=== PATIENT | male | born 2000 | race Caucasian/White ===

== ENCOUNTER 2019-10-20 10:10 | Emergency (ER) | payer OTHER, SELFPAY ==
--- NOTE | 2019-10-20 10:24 | ED.GENADULT ---
HPI - General Adult General Chief complaint: Arrhythmia/Palpitations Stated complaint: difficulty breathing Time Seen by Provider: 10/20/19 10:22 Source: patient Mode of arrival: Ambulatory Limitations: no limitations History of Present Illness HPI narrative: 19-year-old male here for evaluation of palpitations and shortness of breath. Patient states that yesterday afternoon he started feeling like his heart was beating very hard and somewhat fast and also skipping beats. He states that during that time he was having some problems taking a deep breath. Unsure exactly how long the symptoms lasted but it did seem to resolve on its own however he still has a small amount of some shortness of breath currently. No lower extremity swelling. No chest pain. Has had the palpitations in the past but has never been evaluated for them. Last night did not get lightheaded. He was sitting on the couch that time. Related Data Home Medications Medication Instructions Recorded Confirmed [[facility] ] PRN #0 12/01/10 Allergies Allergy/AdvReac Type Severity Reaction Status Date / Time No Known Drug Allergies Allergy Verified 10/20/19 10:54 Review of Systems Constitutional Constitutional: Denies frequent falls and Denies headache(s) ENT Ears, Nose, Mouth, and Throat: Denies headache(s) Cardiovascular Cardiovascular: Denies chest pain, Denies chest pain with activity, Reports rapid heart rate, Reports irregular heart rhythm, Denies lightheadedness and Reports dyspnea Respiratory Respiratory: Denies cough and Reports dyspnea Gastrointestinal Gastrointestinal: Denies abdominal pain, Denies nausea and Denies vomiting Musculoskeletal Musculoskeletal: Denies arthralgias and Denies myalgias Integumentary/Breasts Skin/Breast: Denies rash Neurologic Neurologic: Denies behavioral changes, Denies frequent falls and Denies headache(s) Psychiatric Psychiatric: Denies behavioral changes Hematologic/Lymphatic Hematologic/Lymphatic: Denies easy bleeding and Denies easy bruising Patient History Medical History Healthy adult (Acute) Social History Smoking Status: Current every day smoker Exam Initial Vital Signs Initial Vital Signs: Vital Signs Temperature 98.4 F 10/20/19 10:51 Pulse Rate 62 10/20/19 10:51 Respiratory Rate 14 10/20/19 10:51 Blood Pressure 120/56 L 10/20/19 10:51 Pulse Oximetry 95 10/20/19 10:51 Const General: cooperative, comfortable, well developed and well groomed Limitations: mental status not altered HENWA Head: normal to inspection and normocephalic Resp Effort & Inspection: normal respiratory effort Auscultation: clear to auscultation bilaterally Cardio Rate: regular rate Rhythm: regular rhythm GI Inspection: non-distended Palpation: soft and No firm Skin Lesions: no lesions Rashes: no rashes Neuro General: patient alert, patient awake and patient oriented x3 Cognition: normal cognition Speech: speech normal Extrem General: normal to inspection and capillary refill normal Psych Appearance: grossly normal and well kempt Scores GCS Tamera coma scale eye opening: Spontaneous Tamera coma scale verbal response: Orientated Tamera coma scale motor response: Obey commands Maynard coma scale total score: 15 PERC Score Age greater than or equal to 50 years: No Heart rate greater than or equal to 100 bpm: No Room Air O2 Sat less than 95%: No Unilateral leg swelling: No Recent trauma or surgery: No Hemoptysis: No Prior PE or DVT: No Hormone Use: No Total PERC Score: 0 Course Orders Ordered: ED Orders 10/20/19 10:22 EKG-12 Lead Stat 10/20/19 10:39 XR chest 1V Stat Vital Signs Vital signs: Vital Signs - 8 hr 10/20/19 10:51 10/20/19 11:23 Temperature 98.4 F Pulse Rate 62 63 Respiratory Rate 14 16 Blood Pressure 120/56 L Blood Pressure [Left Arm] 114/71 Pulse Oximetry 95 99 Medical Decision Making Imaging Data Chest x-ray: Radiologist's Impression: [place] [address] XRay Report Signed Patient: Tyshawn Godinez [facility]#: [id number] : 2000Acct:[id number] Age/Sex: 19 / MDate of Service: 10/20/19 Loc: ED Accession Number: [id number] Procedure: XR chest 1V Ordering Provider: Arun Lopez D.O. PROCEDURE: XR CHEST 1V INDICATIONS: Shortness of breath and palpitations TECHNIQUE: One view of the chest was acquired. COMPARISON: None. FINDINGS: Surgical changes and devices: None. Lungs and pleura: Lungs are clear. No pleural effusions or pneumothorax. Mediastinum: Mediastinal contours appear normal. Heart size is normal. Bones and chest wall: No suspicious bony lesions. Overlying soft tissues appear unremarkable. IMPRESSION: No acute disease Dictated by: Arash Foley M.D. on 10/20/2019 at 10:59 Approved by: Arash Foley M.D. on 10/20/2019 at 11:00 ECG Data Attestation: I personally reviewed and interpreted this ECG as follows: Prior ECG tracings: not available for review Interpretation: Sinus rhythm Ventricular rate is 68 Normal axis QRS 115 milliseconds Normal QTC No ST T wave changes MDM Narrative Medical decision making narrative: Patient with no ectopy on his monitor while being here in the ER. His chest x-ray is unremarkable. EKG is unremarkable. Unsure the exact etiology of his palpitations. I did discuss this with him. We did discuss the need for a Holter monitor. He will contact his primary doctor for this. Low suspicion for ACS. Low suspicion for TIA. Low suspicion for PE. Discussed return precautions and follow-up instructions. He expressed understanding and agreement. Discharge Plan Departure Patient Disposition: Home Clinical Impression: Palpitations Instructions: DI for Palpitations Activity Restrictions/Additional Instructions: Recommend you contact your primary provider to discuss a follow-up in to discuss the indications for a Holter monitor. Return to the emergency department for any new or worsening symptoms Prescriptions: No Action [ZERTEC ] PRN Qty: 0 RF: 0
--- NOTE | 2019-10-20 10:39 | DI.RAD.S_ITS ---
PROCEDURE: XR CHEST 1V INDICATIONS: Shortness of breath and palpitations TECHNIQUE: One view of the chest was acquired. COMPARISON: None. FINDINGS: Surgical changes and devices: None. Lungs and pleura: Lungs are clear. No pleural effusions or pneumothorax. Mediastinum: Mediastinal contours appear normal. Heart size is normal. Bones and chest wall: No suspicious bony lesions. Overlying soft tissues appear unremarkable. IMPRESSION: No acute disease Dictated by: Arash Foley M.D. on 10/20/2019 at 10:59 Approved by: Arash Foley M.D. on 10/20/2019 at 11:00
[2019-10-20 10:51] VITALS: BP 120/56; PULSE 62; RESP 14; TEMP 36.9; O2SAT 95; BMI 21.1
[2019-10-20 11:23] VITALS: BP 114/71; PULSE 63; RESP 16; O2SAT 99
[2019-10-20 12:45] VITALS: BP 112/83; PULSE 64; RESP 14; O2SAT 98
--- NOTE | 2019-10-20 13:01 | PC.NURSE ---
Had episode of palpitations, shortness of bretah, and diaphoresis last night.
== END 2019-10-20 13:02 | disposition home or self-care (01) ==
PROVIDERS: Emergency Provider Emergency Medicine
DX: R00.2 Palpitations (principal); R06.02 Shortness of breath
CPT/HCPCS: 71045; 93005; 99283; 99284